=== PATIENT | female | born 1955 | race Caucasian/White ===

== ENCOUNTER 2018-08-05 08:38 | Inpatient (IN) | payer OTHER, BC, SELFPAY ==
[2018-07-21 08:29] VITALS: BMI 27.3
[2018-08-05] VITALS (13 sets, daily range): BP systolic 97–149; BP diastolic 62–93; PULSE 66–92; RESP 14–18; TEMP 35.5–36.3; O2SAT 94–99; BMI 27.3
--- NOTE | 2018-08-05 | DI.RAD.S_ITS ---
PROCEDURE: XR HIP W PEL IF DONE RT 2V INDICATIONS: POST OP TOTAL RIGHT HIP TECHNIQUE: AP pelvis and lateral view of the right hip acquired. COMPARISON: None. FINDINGS: Bones: Patient is status post right hip arthroplasty, with hardware components in expected positions. The hip joint appears congruent. The visualized bony structures appear intact. Moderate to severe degenerative narrowing is present within the left hip. Soft tissues: Overlying postoperative changes are noted. No suspicious soft tissue densities. IMPRESSION: Status post right hip arthroplasty as above. Dictated by: Kat Nieves M.D. on 08/05/2018 at 14:58 Approved by: Kat Nieves M.D. on 08/05/2018 at 14:59
--- NOTE | 2018-08-05 06:30 | DI.RAD.S_ITS ---
PROCEDURE: XR PELVIS 1-2V INDICATIONS: Right hip arthroplasty. TECHNIQUE: Intra-operative view of the pelvis and hip acquired. COMPARISON: [facility], CR, XR PELVIS WITH BILATERAL LATERAL HIPS, 02/17/2018, 8:53. [facility], CR, XR HIP W PEL IF DONE RT 2V, 08/05/2018, 14:19. FINDINGS: Bones: Intraoperative devices prior to placement of right hip arthroplasty prostheses are in expected positions. No fractures or suspicious bony lesions. Soft tissues: Overlying surgical retractors are present, along with other intraoperative changes. IMPRESSION: Intraoperative device in expected alignment. Dictated by: Lourdes Vazquez M.D. on 08/05/2018 at 17:27 Approved by: Lourdes Vazquez M.D. on 08/05/2018 at 17:28
[2018-08-05] MEDS: LACTATED RINGERS 1,000 ML 42 ML IV ×2 (09:42→13:56)
[2018-08-05] MEDS: VANCOMYCIN 1,000 MG/200 ML FROZ.PIGGY 200 MG IV (09:44)
[2018-08-05] MEDS: DEXAMETHASONE 10 MG/ML VIAL 8 MG IV (09:44)
[2018-08-05] MEDS: CELECOXIB 200 MG CAPSULE PO (09:46)
[2018-08-05] MEDS: ACETAMINOPHEN 325 MG TABLET 975 MG PO ×2 (09:46→20:44)
[2018-08-05] MEDS: PREGABALIN 75 MG CAPSULE PO (09:46)
[2018-08-05] MEDS: CEFAZOLIN 2 GM/100 ML FROZ.PIGGY IV ×2 (11:28→20:46)
[2018-08-05] MEDS: MIDAZOLAM 2 MG/2 ML VIAL IV ×2 (11:28)
--- NOTE | 2018-08-05 11:36 | PM.PREOP ---
Pre-operative Note Interval Note Pre-op Check: Yes History & Physical Reviewed by Physician and Yes Exam Performed Changes: No
--- NOTE | 2018-08-05 11:36 | PM.OP.1 ---
Operative Date/Time/Diagnoses Date of procedure: 08/05/18 Time of procedure: 13:36 Pre-op diagnosis: right hip osteoarthritis Post-op diagnosis: same Procedure & Clinicians Procedure: right total hip arthroplasty Same procedure as scheduled: Yes Indications: The patient has had progressively worsening right hip pain with radiographic changes consistent with arthritis. Non-operative management has failed and the patient has requested total hip replacement. The risks, benefits and alternatives to surgery were discussed with the patient prior to proceeding. Risks discussed included, but were not limited to, failure to relieve pain, leg length discrepancy, dislocation, stiffness, infection, nerve damage, deep venous thrombosis, pulmonary embolism, stroke, coma, heart attack, permanent paralysis and , as well as the potential need for eventual revision of the prosthetic. Surgeon: Yarelis Bess Methods Analyst Data Processing: Inna Mandel Anesthesia Type: General and Spinal Operative Notes Findings: severe right hip osteoarthritis, good stability, good mobility Closure Type: primary Specimen(s): none sent Implants & Drains: [employer]hew R3 50, 32 x 50, +0, anthology size 7 standard offset Applied: drain(s) Estimated Blood Loss (mL): 200 Blood products transfused: none Procedure in detail: The patient was seen in the pre-operative area, where the patient identified the right hip as the operative site and this was marked with my initials. The patient received pre-operative antibiotics and was taken to the operating room and placed on the operative table in the left lateral decubitus position after satisfactory anesthesia. A kidney puller out was performed. The right leg was prepared from the ankle to the iliac crest with ChloroPrep in the usual fashion and draped through sterile drapes. The hip was approached through an approximately 20 cm incision centered over the greater trochanter and curving gently posteriorly as it went proximally. This was carried sharply to the fascia balbina, which was divided and retracted with a self retaining retractor. The trochanteric bursa was excised with care being taken to avoid the sciatic nerve, which was identified and protected throughout the case. The short external rotators were incised and the capsulomuscular flap was raised and tagged for later repair. The hip was dislocated, and a femoral neck osteotomy performed approximately 15 mm above the lesser trochanter. Retractors were placed around the femur. The canal was opened with a box cutting osteotome, followed by a T handled reamer and a lateralizing reamer. The chili pepper broach was then used, followed by sequential broaching until there was good stability of the broach in the femur. Retractors were placed to expose the acetabulum. The labrum and central soft tissues were removed. Reaming was performed initially going up in 2 mm increments, then 1 mm increments until good bite was obtained with an odd sized reamer. The cup 1 mm larger than the last reamer was then inserted using the appropriate anteversion guides. A trial neutral liner was placed. The broach was placed in the canal. A trial head and neck were then placed and the hip relocated and checked for leg length and stability. An intraoperative film confirmed the component position and no evidence of fracture. The patient was stable in the position of sleep, of squatting, and could be put through a range of motion with 45 degrees internal rotation without dislocation. At 90 degrees flexion, internal rotation to 70 was possible before dislocation. This was felt to be satisfactory and the appropriate components were opened, and the trials were removed. The acetabular liner was impacted into position. The final stem was then impacted into the prepared femoral canal. A brief Betadine soak was performed while trialing with head options. The hip was meticulously irrigated with normal saline. Finally the femoral head was impacted onto the stem. The acetabulum was cleared of all material and the hip relocated one final time. The capsulomuscular flap was then repaired to the greater trochanter though an awl hole using the tag sutures. The short external rotators were repaired with a black braided nylon. A deep drain was placed and brought out anteriorly. The fascia balbina was closed with black braided nylon. The subcutaneous layer was closed with barbed sutures and SteriStrips. An Aquacel Ag dressing was applied and the patient was taken to recovery having tolerated the procedure well. Complications: none Condition: stable Disposition: Acute Care Plan for aftercare: The patient will be maintained on a standard total hip replacement protocol with weight bearing as tolerated and posterior hip precautions. The patient will receive Aspirin and sequential compression devices for DVT prophylaxis. The patient will be discharged home when safe for the home environment.
[2018-08-05] MEDS: BUPIVACAINE 0.25% W/ EPI VIAL 60 ML INJ (12:24)
[2018-08-05] MEDS: BUPIVACAINE LIPOSOME 266 MG/20 ML VIAL INJ (12:25)
[2018-08-05] MEDS: POVIDONE-IODINE 15 ML, SODIUM CHLORIDE 0.9% 250 ML TOP (12:28)
[2018-08-05] MEDS: SODIUM CHLORIDE IRRIG SOLUTION 250 ML, EPINEPHrine 1 MG IRR (12:31)
[2018-08-05] MEDS: SODIUM CHLORIDE IRRIG SOLUTION 1,000 ML BOTTLE 1000 ML IRR (12:32)
--- NOTE | 2018-08-05 12:53 | SUR.OPER ---
Lateral on padded OR bed. Gel axillary roll. Arms secured on padded armboard with pillow supporting top arm. Padded hip positioner braces x4 - anterior and posterior chest and pelvis. Additional gel pad used anterior pelvis. Gel pad under bottom leg from knee to foot and secured with tape over sheet.
--- NOTE | 2018-08-05 15:01 | SUR.PHASEI ---
Margi had reported upon admit to PACU the pt. had eye lid swelling to both eyelids, most likely due to the tape that was placed over eye for surgery. This author applied a surg. glove with ice on a wash cloth and the wash cloth was placed over the eye lids.
--- NOTE | 2018-08-05 15:03 | SUR.PHASEI ---
At this time, noted improvement to eye lids. Removed wash cloth and ice for now.
[2018-08-05] MEDS: LACTATED RINGERS 1,000 ML 125 ML IV (15:54)
--- NOTE | 2018-08-05 16:24 | PT.IPTN ---
Current Diagnoses Unilateral primary osteoarthritis, right hip (08/05/18) Surgery Performed Operation Date: 08/05/18 10:45 Actual Procedures p Total Hip Arthroplasty(Right) - Yarelis Bess MD Physical Therapy Treatment Note M3 PT-IP Subjective Start: 08/05/18 16:21 Freq: NEEDED Status: Active Protocol: Document 08/05/18 16:22 EA (Rec: 08/05/18 16:24 EA [id number]) Subjective Physical Therapy Visit Type Type Patient Unavailable Notes at 1640, Nurse in-charged informed advertising copywriter that patient is just got up into the floor and not ready for PT eval yet. To perform PT evaluation tomorrow a.m
[2018-08-05] MEDS: DOCUSATE 100 MG CAPSULE PO (20:45)
[2018-08-05] MEDS: ASPIRIN EC 81 MG TABLET PO (20:45)
[2018-08-05] MEDS: ONDANSETRON 4 MG/2 ML INJ IV (20:51)
[2018-08-06] MEDS: ONDANSETRON 4 MG/2 ML INJ IV ×2 (00:23→08:49)
[2018-08-06] MEDS: LACTATED RINGERS 1,000 ML 125 ML IV (00:26)
[2018-08-06] MEDS: OXYCODONE IR 5 MG TABLET PO ×2 (01:05→23:49)
[2018-08-06] MEDS: CEFAZOLIN 2 GM/100 ML FROZ.PIGGY IV (03:05)
--- NOTE | 2018-08-06 03:57 | PC.NURSE ---
NOC pt denied pain at start of shift, but quickly increased to a 5/10 when she got up to use BSC. pt voided 200 (plus a mild amount of dribbling on floor). Patient then became nauseous and vomited 300ml, 4mg Zofran IV administered. Patient reported no nausea after 30 minutes and I administered 5mg Oxycodone for pain.
[2018-08-06 04:32] VITALS: BP 127/90; PULSE 61; RESP 16; TEMP 35.9; O2SAT 98
[2018-08-06] MEDS: LEVOTHYROXINE 100 MCG TABLET PO (05:27)
[2018-08-06 08:00] VITALS: BP 131/96; PULSE 65; RESP 16; TEMP 35.9; O2SAT 100
[2018-08-06] MEDS: LOSARTAN 50 MG TABLET PO (09:08)
[2018-08-06] MEDS: MULTIVITAMIN 1 TABLET 1 TAB PO (09:09)
[2018-08-06] MEDS: DOCUSATE 100 MG CAPSULE PO ×2 (09:09→21:13)
[2018-08-06] MEDS: ASPIRIN EC 81 MG TABLET PO ×2 (09:09→21:13)
[2018-08-06] MEDS: ACETAMINOPHEN 325 MG TABLET 975 MG PO ×3 (09:09→21:13)
--- NOTE | 2018-08-06 10:03 | PM.PNPO.1 ---
Subjective Date Patient Seen: 08/06/18 Time Patient Seen: 07:17 Interval history: Patient was having moderate to severe pain earlier this morning. Current pain is mild. Denies fever chills. She has been nauseous and had an episode of vomiting earlier this morning. Has been up using the bedside commode but has not been seen by physical therapy. Exam Vital Signs (past 8 hours): - 08/06/18 04:32 Temperature 96.6 F L Pulse Rate 61 Respiratory Rate 16 Blood Pressure 127/90 Pulse Oximetry 98 Oxygen Delivery Method Room Air Oxygen Flow Rate 2 Narrative Exam Narrative: 62-year-old female resting comfortably in bed in no apparent distress. Right hip dressing is clean, dry and intact. Motor functions intact distal right lower extremity. Sensation is grossly intact to light touch right lower extremity. Objective Labs Result Diagrams: 08/06/18 06:35 Assessment & Plan Post-op Postoperative Procedures Operation Date: 08/05/18 10:45 Actual Procedures Side Surgeon p Total Hip Arthroplasty Right Yarelis Bess MD Patient progressing as expected status post right total hip arthroplasty. Mobilize with physical therapy. Will continue work on pain control and her nausea. Likely discharge home tomorrow. Quality VTE Deep Vein Thrombosis/Pulmonary Embolism Present on Admission: No
--- NOTE | 2018-08-06 11:25 | PT.IIE ---
Current Diagnoses Unilateral primary osteoarthritis, right hip (08/05/18) Surgery Performed Operation Date: 08/05/18 10:45 Actual Procedures p Total Hip Arthroplasty(Right) - Yarelis Bess MD Surgical History (Last Updated 07/21/18 @ 09:15 by Daniela Cowart, RN) History of bilateral tubal ligation (Acute) Medical History (Last Updated 07/21/18 @ 09:16 by Daniela Cowart, RN) Allergy to metal (Acute) Cataracts, bilateral (Acute) Constipation (Acute) History of frequent headaches (Acute) History of migraine headaches (Acute) Latex allergy (Acute) Postmenopausal (Acute) Primary localized osteoarthrosis of pelvic region (Acute) Physical Therapy Inpatient Evaluation/Re-Eval M1 PT/OT-IP Prior Functional Status Start: 08/05/18 16:21 Freq: NEEDED Status: Active Protocol: Document 08/06/18 11:25 AB (Rec: 08/06/18 13:02 [id number]) Medical Review Prior Functional Status Medical History Reviewed Yes Communication able to make needs known Mobility and Gait Pt stated that she is independent with all mobilities and ambulation without AD Social History Household Members spouse Living Arrangements House Number of Floors (Floors) One Floor Number of Stairs To Enter/Railing? 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 spouse works as well but will take a few weeks off to assist pt. pt plans to take a shower at her mom's house which is ~ 7 houses away: walk in shower with built in shower chair and grab bars M2 PT-IP Current Condition Start: 08/05/18 16:21 Freq: NEEDED Status: Active Protocol: Document 08/06/18 11:25 AB (Rec: 08/06/18 13:02 AB [id number]) Physical Therapy Current Condition Current Condition Evaluation Date 08/06/18 Treatment Diagnosis s/p R BEATRIZ posterior approach Onset Date 08/05/18 Precautions Posterior Hip Precautions No Hip Flexion > 90 degrees No Hip Internal Rotation No Hip Adduction Weight Bearing Status Weight Bearing Status Weight Bear as Tolerated M3 PT-IP Subjective Start: 08/05/18 16:21 Freq: NEEDED Status: Active Protocol: Document 08/06/18 11:25 AB (Rec: 08/06/18 13:02 AB [id number]) Subjective Physical Therapy Visit Type Type Initial Evaluation Visit Start Time 11:25 Visit Stop Time 12:05 Total Visit Minutes 40 Number of [facility] OPERATOR Visits 0 Physical Therapy Visit Comments Patient Comments pt agreeable to do PT Therapy Pain Assessment Pain When Pain Assessed At Rest Pain Present Pain Present Pain Reported Location rt hip Intensity 6 Scale Used Numeric (1 - 10) Pain Management Techniques Apply Cold Re-positioning Timing of Activity with Medications M4 PT-IP Mobility and Gait Start: 08/05/18 16:21 Freq: NEEDED Status: Active Protocol: Document 08/06/18 11:25 AB (Rec: 08/06/18 13:02 [id number]) PT-Bed Mobility Assessment Supine to Sit Supine to Sit Standby Assistance Scooting Scooting to Edge of Bed Standby Assistance PT-Transfer Assessment Sit to and From Stand Sit to and from Stand Contact Guard Assistance Equipment Transfer Assistive Device Gait Belt Front Wheeled Walker Orthotic/Prosthetic Devices or Brace: No Transfers Transfer Destination Chair Transfer Technique Stand Step Pivot Transfer Ability Level of Assist Contact Guard Assistance 1 Person Assistance Use of Upper Extremities Gait Assessment Gait Gait Assistance Required: Contact Guard Assist Distance (Feet) 40 Able to Maintain Weight Bearing Status Yes During Gait Assistive Devices Assistive Device Gait Belt Front Wheeled Walker Orthotic/Prosthetic Devices or Brace: No Gait Deviations General Gait Pattern Antalgic Decreased Stride Length Decreased Feet Clearance Step-to Gait Factors Limiting Gait Function Factors Limiting Gait Function Decreased Activity Tolerance Decreased Strength Limited Range of Motion Pain Poor Balance PT-Balance Assessment Sitting Balance and Reactions Static Sitting Balance Ability Good Dynamic Sitting Balance Ability Good Standing Balance and Reactions Static Standing Balance Ability Fair Dynamic Standing Balance Ability Fair Device Used FWW M5 PT-IP Objective Assessments Start: 08/05/18 16:21 Freq: NEEDED Status: Active Protocol: Document 08/06/18 11:25 AB (Rec: 08/06/18 13:02 AB [id number]) Orientation Orientation/Cognition Level of Alertness Alert Orientation Name Age Birthday Month Date Year Day of Week Place Situation Safety Awareness Understands Safety Issues Gross Range of Motion Lower Extremity ROM Assessment Right Impaired Strength Lower Extremity Strength Assessment Right Impaired Knee 3+/5 Muscle Tone Muscle Tone WNL Yes M6 PT-IP Treatment Start: 08/05/18 16:21 Freq: NEEDED Status: Active Protocol: Document 08/06/18 11:25 AB (Rec: 08/06/18 13:02 AB [id number]) Physical Therapy Treatment Education Education Provided Precautions Weight Bearing Status Post-Op Packet Safety M7 PT-IP Assessment and Plan Start: 08/05/18 16:21 Freq: NEEDED Status: Active Protocol: Document 08/06/18 11:25 AB (Rec: 08/06/18 13:02 AB [id number]) PT Summary Assessment and Plan Potential Rehabilitation Potential Good Status of Condition at Evaluation Stable Summary Impairments Pain ROM Strength Balance Coordination Sensation Tone Cognition Bed Mobility Transfers Gait Activity Tolerance Assessment Summary pt requiring CGA with mobility and will likely progres during hospital stay. pt plans to go home with spouse to assist her. pt also stated that she is already set up for outpt PT. Goals Bed Mobility Goal Independent Transfer Goal Independent Front Wheeled Walker Gait Goal Standby Assistance Front Wheel Walker Gait Distance 150 Other Goals up/down 2 steps without rails using FWW or least restrictive device CGA Days to Meet Goals 3 Frequency of Treatment Frequency Of Treatment Twice a Day Treatment Plan Physical Therapy Treatment Plan Bed Mobility Training Transfer Training Gait Training Therapeutic Exercise Balance Retraining Post Op Education Discharge Planning Hot or Cold Pack Neuromuscular Re-ed Coordination Retraining Manual Therapy Recommendations To Nursing Amount of Assist Needed 1 Person Assist Discharge Recommendations PT Discharge Recommendations Home with Assistance Outpatient PT
[2018-08-06 12:00] VITALS: BP 129/83; PULSE 71; RESP 16; TEMP 36.1; O2SAT 100
[2018-08-06 12:47] LABS: Hematocrit 35.9 % (36-46); Hemoglobin 12.2 g/dL (12.0-16.0)
[2018-08-06] MEDS: ONDANSETRON 4 MG ODT PO (12:47)
[2018-08-06] MEDS: IBUPROFEN 600 MG TABLET PO ×2 (12:48→18:48)
--- NOTE | 2018-08-06 16:05 | CM.DANOTE ---
DCP Chart Review Patient is a 62 year old female who was admitted on 08/05/18 for Right Total Hip. Pt has REG PPO and BX FED for insurance and her PCP is Dr. Smith. EMR was reviewed. Per Ortho, pt tolerated procedure well and likely d/c home tomorrow if stable. Per PT, currently recommending home with family assist and outpt. Per PT, pt has supportive local family in [place] and has a good plan for assist and outpt therapy. SW unable to complete bedside assessment due to triage needs. Plan: SW to follow closely tomorrow for likely d/c home with family assist and outpt therapy. SW to complete bedside assessment if possible to confirm. DONNA Gastelum
[2018-08-06 16:12] VITALS: BP 98/63; PULSE 74; RESP 20; TEMP 36.4; O2SAT 99
--- NOTE | 2018-08-06 17:13 | PT.IPTN ---
Current Diagnoses Unilateral primary osteoarthritis, right hip (08/05/18) Surgery Performed Operation Date: 08/05/18 10:45 Actual Procedures p Total Hip Arthroplasty(Right) - Yarelis Bess MD Physical Therapy Treatment Note M2 PT-IP Current Condition Start: 08/05/18 16:21 Freq: NEEDED Status: Active Protocol: Document 08/06/18 11:25 AB (Rec: 08/06/18 13:02 AB [id number]) Physical Therapy Current Condition Current Condition Evaluation Date 08/06/18 Treatment Diagnosis s/p R BEATRIZ posterior approach Onset Date 08/05/18 Precautions Posterior Hip Precautions No Hip Flexion > 90 degrees No Hip Internal Rotation No Hip Adduction Weight Bearing Status Weight Bearing Status Weight Bear as Tolerated M3 PT-IP Subjective Start: 08/05/18 16:21 Freq: NEEDED Status: Active Protocol: Document 08/06/18 16:54 BELEN (Rec: 08/06/18 17:13 LJ [id number]) Subjective Physical Therapy Visit Type Type Progress Note Visit Start Time 15:35 Visit Stop Time 16:00 Total Visit Minutes 25 Physical Therapy Visit Comments Patient Comments Pt agreed to pracise stairs Therapy Pain Assessment Pain When Pain Assessed At Rest Pain Present Pain Present Denied Pain M4 PT-IP Mobility and Gait Start: 08/05/18 16:21 Freq: NEEDED Status: Active Protocol: Document 08/06/18 16:54 BELEN (Rec: 08/06/18 17:13 LJ [id number]) PT-Bed Mobility Assessment Supine to Sit Supine to Sit Standby Assistance Scooting Scooting to Edge of Bed Standby Assistance PT-Transfer Assessment Sit to and From Stand Sit to and from Stand Standby Assistance Equipment Transfer Assistive Device Gait Belt Straight Cane Orthotic/Prosthetic Devices or Brace: No Transfers Transfer Destination Bed Transfer Technique Forward/Backward Scoot Transfer Ability Level of Assist Standby Assistance 1 Person Assistance Use of Upper Extremities Gait Assessment Gait Gait Assistance Required: Contact Guard Assist Distance (Feet) 365 Able to Maintain Weight Bearing Status Yes During Gait Assistive Devices Assistive Device Gait Belt Straight Cane Orthotic/Prosthetic Devices or Brace: No Gait Deviations General Gait Pattern Antalgic Decreased Feet Clearance Factors Limiting Gait Function Factors Limiting Gait Function Decreased Activity Tolerance Decreased Strength Limited Range of Motion Pain Poor Balance Comments Gait Comments Pt ambulated with CGA with straight cane from home WC following 365' after performing stairs x 4. Pt taking normal length steps and a bit fast. Cues to slow down . PT-Balance Assessment Sitting Balance and Reactions Static Sitting Balance Ability Good Dynamic Sitting Balance Ability Good Standing Balance and Reactions Static Standing Balance Ability Fair Dynamic Standing Balance Ability Fair Device Used SPC M5 PT-IP Objective Assessments Start: 08/05/18 16:21 Freq: NEEDED Status: Active Protocol: Document 08/06/18 11:25 AB (Rec: 08/06/18 13:02 AB [id number]) Orientation Orientation/Cognition Level of Alertness Alert Orientation Name Age Birthday Month Date Year Day of Week Place Situation Safety Awareness Understands Safety Issues Gross Range of Motion Lower Extremity ROM Assessment Right Impaired Strength Lower Extremity Strength Assessment Right Impaired Knee 3+/5 Muscle Tone Muscle Tone WNL Yes M6 PT-IP Treatment Start: 08/05/18 16:21 Freq: NEEDED Status: Active Protocol: Document 08/06/18 16:54 LJ (Rec: 08/06/18 17:13 LJ [id number]) Physical Therapy Treatment Education Education Provided Precautions Weight Bearing Status Post-Op Packet Safety M7 PT-IP Assessment and Plan Start: 08/05/18 16:21 Freq: NEEDED Status: Active Protocol: Document 08/06/18 16:54 LJ (Rec: 08/06/18 17:13 LJ [id number]) PT Summary Assessment and Plan Potential Rehabilitation Potential Good Status of Condition at Evaluation Stable Summary Impairments Pain ROM Balance Gait Activity Tolerance Assessment Summary SBA for bed mobility and transfers. Pt practised stairs x 4 using SPC with assisting 2 times. Completed stair training with no LOB or confusion. Ambulated with 365' using near normal step length and pace. Slight foot clearance deficit. Overall mobility is very good and understands his role in gait assistance and stairs. Goals Bed Mobility Goal Independent Transfer Goal Independent Front Wheeled Walker Gait Goal Standby Assistance Front Wheel Walker Gait Distance 150 Other Goals up/down 2 steps without rails using FWW or least restrictive device CGA Days to Meet Goals 3 Frequency of Treatment Frequency Of Treatment Twice a Day Treatment Plan Physical Therapy Treatment Plan Bed Mobility Training Transfer Training Gait Training Therapeutic Exercise Balance Retraining Post Op Education Discharge Planning Hot or Cold Pack Neuromuscular Re-ed Coordination Retraining Manual Therapy Recommendations To Nursing Amount of Assist Needed Standby Assistance Discharge Recommendations PT Discharge Recommendations Home with Assistance Outpatient PT
[2018-08-06 19:57] VITALS: BP 112/52; PULSE 80; RESP 18; TEMP 36.1; O2SAT 98
[2018-08-06 20:50] VITALS: O2SAT 99
--- NOTE | 2018-08-06 21:23 | PC.NURSE ---
Urinary Retention/Bailee Shift Patient having urinary retention this shift. Patient dribbling urine, before and after voiding. At 1840 this shift patient voided 500mls, Post void residual scan showed >488mls in bladder. Patient asked to wait for I/O cath and see if she could void more. At 1945 patient voided 450mls and had Post void-residual of 478mls. Patient agreed to I/O cath at this time. I/O cath evacuated 800mls from patient's bladder. Patient then re-evaluated with bladder scanner after I/O cath with results of 0 mls in patient's bladder. Discussed with patient possible need to put in Faith catheter if this happens again. Patient agreed with this assessment. This RN discussed with patient need to get to bathroom more frequently to try to keep bladder as empty as possible. Upon discussion with patient, patient revealed that since her Cortisone injection 3 weeks ago she has been having trouble feeling when she has to void until it's becoming urgent. Patient states that since the injection she has been dribbling and having to wear liners in her underwear to protect herself. Patient states that dribbling and wearing pads was not her normal a month ago. Patient up ambulating very well, and pain helped with tylenol and motrin. No acute distress, will continue to monitor.
--- NOTE | 2018-08-06 23:36 | PC.NURSE ---
URINARY RETENTION/RAJAN PLACEMENT Patient voided 500mls at 2315 this shift. Post void residula scan revealed 350mls remaining in patient bladder. Upon discussion with patient rajan catheter placement agreed upon. Rajan placed using sterile technique at 2330. Clear urine evacuated immediately upon rajan placement. over 400mls removed and still draining. Patient tolerated procedure well.
[2018-08-07 00:04] VITALS: BP 93/57; PULSE 76; RESP 18; TEMP 36.6; O2SAT 97
[2018-08-07 04:15] VITALS: BP 96/67; PULSE 74; RESP 14; TEMP 36.3; O2SAT 95
[2018-08-07] MEDS: LEVOTHYROXINE 100 MCG TABLET PO (06:28)
[2018-08-07] MEDS: LOSARTAN 50 MG TABLET PO (08:26)
[2018-08-07] MEDS: DOCUSATE 100 MG CAPSULE PO ×2 (08:27→20:34)
[2018-08-07] MEDS: MULTIVITAMIN 1 TABLET 1 TAB PO (08:27)
[2018-08-07] MEDS: ACETAMINOPHEN 325 MG TABLET 975 MG PO ×3 (08:27→20:34)
[2018-08-07] MEDS: ASPIRIN EC 81 MG TABLET PO ×2 (08:27→20:35)
--- NOTE | 2018-08-07 10:42 | PM.PNPO.1 ---
Subjective Date Patient Seen: 08/07/18 Time Patient Seen: 10:43 Interval history: POD #2 status post right total hip arthroplasty posterior approach with Dr. Bess. Patient had difficulty urinating yesterday and Faith catheter was placed late last night. Patient's pain is well controlled. She notes a long history of difficulty ambulating due to her back issues. She notes she was falling before surgery due to her calves giving out. She is ambulating well in the hospital with physical therapy. Exam Vital Signs (past 8 hours): - 08/07/18 04:15 Temperature 97.4 F L Pulse Rate 74 Respiratory Rate 14 Blood Pressure 96/67 Pulse Oximetry 95 Oxygen Delivery Method Room Air Oxygen Flow Rate 2 Narrative Exam Narrative: Patient sitting in bedside chair in no acute distress. She is alert and oriented x3. Calves are soft, compressible, nontender bilaterally. Sensation intact light touch throughout bilateral lower extremities. Pulses are symmetrical. Right hip dressing is CDI. Faith in place. Objective Labs Result Diagrams: 08/06/18 06:35 Labs: Laboratory Results - last 24 hr 08/06/18 06:35 Hgb 12.2 Hct 35.9 L Assessment & Plan Post-op (1) S/P total hip arthroplasty: Current Visit: Yes Status: Acute (2) Thyroid disease: Current Visit: Yes Status: Acute (3) Scoliosis: Current Visit: Yes Status: Acute (4) Hypertension: Current Visit: Yes Status: Acute Postoperative Procedures Operation Date: 08/05/18 10:45 Actual Procedures Side Surgeon p Total Hip Arthroplasty Right Yarelis Bess MD POD #2 status post right total hip arthroplasty posterior approach with Dr. Bess. Keep Faith in place today, she had urinary retention all day yesterday and in and out caths, and would benefit from 1 more day. DC Faith early tomorrow morning. Continue mobilizing with her walker and with physical therapy. Continue current pain control. Plan will be to discharge home tomorrow. Quality VTE Deep Vein Thrombosis/Pulmonary Embolism Present on Admission: No
--- NOTE | 2018-08-07 11:15 | PT.IPTN ---
Current Diagnoses Disorder of thyroid, unspecified (08/05/18) Essential (primary) hypertension (08/05/18) Unilateral primary osteoarthritis, right hip (08/05/18) Scoliosis, unspecified (08/05/18) Presence of unspecified artificial hip joint (08/05/18) Surgery Performed Operation Date: 08/05/18 10:45 Actual Procedures p Total Hip Arthroplasty(Right) - Yarelis Bess MD Physical Therapy Treatment Note M2 PT-IP Current Condition Start: 08/05/18 16:21 Freq: NEEDED Status: Active Protocol: Document 08/06/18 11:25 AB (Rec: 08/06/18 13:02 AB [id number]) Physical Therapy Current Condition Current Condition Evaluation Date 08/06/18 Treatment Diagnosis s/p R BEATRIZ posterior approach Onset Date 08/05/18 Precautions Posterior Hip Precautions No Hip Flexion > 90 degrees No Hip Internal Rotation No Hip Adduction Weight Bearing Status Weight Bearing Status Weight Bear as Tolerated M3 PT-IP Subjective Start: 08/05/18 16:21 Freq: NEEDED Status: Active Protocol: Document 08/07/18 11:15 AB (Rec: 08/07/18 12:50 AB [id number]) Subjective Physical Therapy Visit Type Type Treatment Note Visit Start Time 11:15 Visit Stop Time 11:45 Total Visit Minutes 30 Number of MODEL 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 Visits 0 Physical Therapy Visit Comments Patient Comments pt agreeable to do PT Therapy Pain Assessment Pain When Pain Assessed At Rest Pain Present Pain Present Pain Reported Location rt hip Intensity 6 Scale Used Numeric (1 - 10) Pain Management Techniques Apply Cold Re-positioning Timing of Activity with Medications M4 PT-IP Mobility and Gait Start: 08/05/18 16:21 Freq: NEEDED Status: Active Protocol: Document 08/07/18 11:15 AB (Rec: 08/07/18 12:50 AB [id number]) PT-Transfer Assessment Sit to and From Stand Sit to and from Stand Standby Assistance 1 Person Assistance Equipment Transfer Assistive Device Gait Belt Front Wheeled Walker Gait Assessment Gait Gait Assistance Required: Standby Assistance Distance (Feet) 250 Able to Maintain Weight Bearing Status Yes During Gait Assistive Devices Assistive Device Gait Belt Front Wheeled Walker Orthotic/Prosthetic Devices or Brace: No Gait Deviations General Gait Pattern Decreased Stride Length Factors Limiting Gait Function Factors Limiting Gait Function Decreased Strength Limited Range of Motion Pain Poor Balance Stair Climbing Assessment Evaluation Level of Assist On Stairs Minimal Assistance 1 Person Assistance Devices Stair Climbing Assistive Devices Straight Cane Technique/Endurance Stair Climbing Direction Ascend and Descend Stair Climbing Technique Step to Step Number of Steps Climbed 3 Query Text: Stair Climbing Set # Repetitions (reps) 2 Comments Stair Climbing Comments pt completed up/down steps using SPC and PUNCH OPERATOR. caregiver training conduced with spouse and spouse was frank to safely assist pt with steps. M5 PT-IP Objective Assessments Start: 08/05/18 16:21 Freq: NEEDED Status: Active Protocol: Document 08/06/18 11:25 AB (Rec: 08/06/18 13:02 AB [id number]) Orientation Orientation/Cognition Level of Alertness Alert Orientation Name Age Birthday Month Date Year Day of Week Place Situation Safety Awareness Understands Safety Issues Gross Range of Motion Lower Extremity ROM Assessment Right Impaired Strength Lower Extremity Strength Assessment Right Impaired Knee 3+/5 Muscle Tone Muscle Tone WNL Yes M6 PT-IP Treatment Start: 08/05/18 16:21 Freq: NEEDED Status: Active Protocol: Document 08/07/18 11:15 AB (Rec: 08/07/18 12:50 AB [id number]) Physical Therapy Treatment Education Education Provided Precautions Safety M7 PT-IP Assessment and Plan Start: 08/05/18 16:21 Freq: NEEDED Status: Active Protocol: Document 08/07/18 11:15 AB (Rec: 08/07/18 12:50 AB [id number]) PT Summary Assessment and Plan Potential Rehabilitation Potential Good Summary Impairments Pain ROM Strength Balance Bed Mobility Transfers Gait Activity Tolerance Progress Towards Goals Progressing Toward Goals Assessment Summary pt doing well with mobility and caregiver training conducted and spouse was able to safely assist pt. pt may go home when medically stable. Goals Bed Mobility Goal Independent Transfer Goal Independent Front Wheeled Walker Gait Goal Standby Assistance Front Wheel Walker Gait Distance 150 Other Goals up/down 2 steps without rails using FWW or least restrictive device CGA Days to Meet Goals 3 Frequency of Treatment Frequency Of Treatment Twice a Day Treatment Plan Physical Therapy Treatment Plan Bed Mobility Training Transfer Training Gait Training Therapeutic Exercise Balance Retraining Post Op Education Discharge Planning Hot or Cold Pack Neuromuscular Re-ed Coordination Retraining Manual Therapy Other Recommendations and Next Treatment HEP Focus Recommendations To Nursing Amount of Assist Needed Standby Assistance Discharge Recommendations PT Discharge Recommendations Home with Assistance Outpatient PT
[2018-08-07 12:00] VITALS: BP 97/60; PULSE 91; RESP 18; TEMP 36.4; O2SAT 99
[2018-08-07] MEDS: POLYETHYLENE GLYCOL 3350 17 GM POWD.PACK PO (12:25)
[2018-08-07] MEDS: TRAMADOL 50 MG TABLET PO ×2 (12:44→20:38)
--- NOTE | 2018-08-07 15:30 | PT.IPTN ---
Current Diagnoses Disorder of thyroid, unspecified (08/05/18) Essential (primary) hypertension (08/05/18) Unilateral primary osteoarthritis, right hip (08/05/18) Scoliosis, unspecified (08/05/18) Presence of unspecified artificial hip joint (08/05/18) Surgery Performed Operation Date: 08/05/18 10:45 Actual Procedures p Total Hip Arthroplasty(Right) - Yarelis Bess MD Physical Therapy Treatment Note M2 PT-IP Current Condition Start: 08/05/18 16:21 Freq: NEEDED Status: Active Protocol: Document 08/06/18 11:25 AB (Rec: 08/06/18 13:02 AB [id number]) Physical Therapy Current Condition Current Condition Evaluation Date 08/06/18 Treatment Diagnosis s/p R BEATRIZ posterior approach Onset Date 08/05/18 Precautions Posterior Hip Precautions No Hip Flexion > 90 degrees No Hip Internal Rotation No Hip Adduction Weight Bearing Status Weight Bearing Status Weight Bear as Tolerated M3 PT-IP Subjective Start: 08/05/18 16:21 Freq: NEEDED Status: Active Protocol: Document 08/07/18 15:25 GGD (Rec: 08/07/18 16:32 GGD [email or web address]) Subjective Physical Therapy Visit Type Type Treatment Note Visit Start Time 15:00 Visit Stop Time 15:25 Total Visit Minutes 25 Number of POULTRY SCIENTIST Visits 1 Physical Therapy Visit Comments Patient Comments Pt would like to go over exercises. Therapy Pain Assessment Pain When Pain Assessed At Rest Pain Present Pain Present Pain Reported M4 PT-IP Mobility and Gait Start: 08/05/18 16:21 Freq: NEEDED Status: Active Protocol: Document 08/07/18 15:25 GGD (Rec: 08/07/18 16:32 GGD [email or web address]) PT-Bed Mobility Assessment Supine to Sit Supine to Sit Standby Assistance Sit to Supine Sit to Supine Standby Assistance Scooting Scooting to Edge of Bed Standby Assistance PT-Transfer Assessment Sit to and From Stand Sit to and from Stand Standby Assistance 1 Person Assistance Equipment Transfer Assistive Device Gait Belt Front Wheeled Walker Transfers Transfer Destination Bed Gait Assessment Gait Gait Assistance Required: Standby Assistance Distance (Feet) 500 Able to Maintain Weight Bearing Status Yes During Gait Assistive Devices Assistive Device Gait Belt Front Wheeled Walker Orthotic/Prosthetic Devices or Brace: No Gait Deviations General Gait Pattern Decreased Stride Length Factors Limiting Gait Function Factors Limiting Gait Function Decreased Strength Limited Range of Motion Pain Poor Balance M5 PT-IP Objective Assessments Start: 08/05/18 16:21 Freq: NEEDED Status: Active Protocol: Document 08/06/18 11:25 AB (Rec: 08/06/18 13:02 AB [id number]) Orientation Orientation/Cognition Level of Alertness Alert Orientation Name Age Birthday Month Date Year Day of Week Place Situation Safety Awareness Understands Safety Issues Gross Range of Motion Lower Extremity ROM Assessment Right Impaired Strength Lower Extremity Strength Assessment Right Impaired Knee 3+/5 Muscle Tone Muscle Tone WNL Yes M6 PT-IP Treatment Start: 08/05/18 16:21 Freq: NEEDED Status: Active Protocol: Document 08/07/18 15:25 GGD (Rec: 08/07/18 16:32 GGD [email or web address]) Physical Therapy Treatment Exercises Exercises Ankle Pumps Gluteal Sets Quad Sets Heel Slides Supine Hip Abduction Education Education Provided Precautions M7 PT-IP Assessment and Plan Start: 08/05/18 16:21 Freq: NEEDED Status: Active Protocol: Document 08/07/18 15:25 GGD (Rec: 08/07/18 16:32 GGD [email or web address]) PT Summary Assessment and Plan Summary Assessment Summary Pt need cues for hip precautions with gait and bed mobility. She safe with gait and no LOB or unsteadiness. She should be safe to D/C home when medically stable. Frequency of Treatment Frequency Of Treatment Twice a Day Treatment Plan Physical Therapy Treatment Plan Bed Mobility Training Transfer Training Gait Training Therapeutic Exercise Balance Retraining Post Op Education Discharge Planning Hot or Cold Pack Neuromuscular Re-ed Coordination Retraining Manual Therapy Recommendations To Nursing Amount of Assist Needed Standby Assistance Discharge Recommendations PT Discharge Recommendations Home with Assistance Outpatient PT
[2018-08-07 16:15] VITALS: BP 99/57; PULSE 108; RESP 16; TEMP 36.7; O2SAT 95
[2018-08-07 19:27] VITALS: BP 106/77; PULSE 108; RESP 18; TEMP 36.8; O2SAT 98
[2018-08-08 00:34] VITALS: BP 146/67; PULSE 88; RESP 14; TEMP 36.6; O2SAT 98
[2018-08-08] MEDS: TRAMADOL 50 MG TABLET PO ×2 (01:37→06:17)
[2018-08-08] MEDS: LEVOTHYROXINE 100 MCG TABLET PO (06:17)
--- NOTE | 2018-08-08 07:41 | PM.DS.1 ---
History of Present Illness Date Patient Seen: 08/08/18 Chief complaint: [id number] Narrative: Patient was seen bedside s/p R. BEATRIZ on 08/05/18 POD #3. Doing well, pain is well controlled, she is ready to go home. Denies SOB, cough, CP, calf pain. Discharge Providers Date of admission: 08/05/18 08:38 Consults: 08/05/18 15:47 Consult to Discharge Planning Routine Comment: Consult to Physical Therapy Evaluate & Treat Comment: posterior Physician Instructions: post op BEATRIZ protocol Consult to Respiratory Therapy Evaluate & Treat Comment: Physician Instructions: Evaluate and treat Discharge provider: Inna Mandel PA-C Summary Discharge Diagnosis: right hip osteoarthritis Hospital Course: Patient was admitted to the hospital on 08/05/2018 status post right total hip arthroplasty with Dr. Bess. Patient tolerated the procedure with no major complications. Patient was transferred to the acute care floor. Patient was seen by Physical therapy who recommended patient be discharged home with outpatient PT. Patient did have some urinary retention after surgery however it has resolved by 08/08/18. Patient was stable and ready for discharge on 08/08/2018. Status at Discharge Cognitive/behavioral status at discharge: Alert and oriented x3 Functional status at discharge: uses cane/walker Overall status at discharge: patient is progressing back to baseline Time Spent with Patient Less than 30 minutes Exam Vital Signs (past 8 hours): - 08/08/18 00:34 Temperature 97.9 F Pulse Rate 88 Respiratory Rate 14 Blood Pressure 146/67 H Pulse Oximetry 98 Oxygen Delivery Method Room Air Oxygen Flow Rate 2 Narrative Exam Narrative: WDWN NAD A&Ox3. Dressing on right hip is CDI, RLE NVI. Calf is soft and compressible. Objective Labs Result Diagrams: 08/06/18 06:35 Discharge Plan Discharge Plan Patient Disposition: Home Discharge Med Rec/Prescriptions Prescriptions: New acetaminophen 325 mg Tablet 975 mg PO TID Qty: 0 RF: 0 aspirin 81 mg Tablet,Delayed Release (Dr/Ec) 81 mg PO BID Qty: 0 RF: 0 docusate sodium 100 mg Capsule 100 mg PO BID Qty: 0 RF: 0 oxycodone 5 mg Tablet 5 mg PO Q3HR PRN (Reason: Pain, Moderate (4-6)) Qty: 0 RF: 0 hydroxyzine pamoate [Vistaril] 25 mg capsule 25 mg PO Q6-8H PRN (Reason: muscle spasm) Qty: 60 RF: 0 Continue multivitamin Tablet 1 - 3 tab PO DAILY RF: 0 losartan 50 mg Tablet 50 mg PO DAILY RF: 0 phentermine 37.5 mg Tablet 37.5 mg PO DAILY RF: 0 levothyroxine 100 mcg Tablet 100 mcg PO DAILY RF: 0 ibuprofen [Advil] 200 mg Tablet 800 mg PO Q4-6H PRN (Reason: Bid) RF: 0 Provider Discharge Instructions Diet: Diet as Tolerated Activity: WBAT, follow posterior hip precautions, use walker until cleared by PT Cold/Heat Therapy: Apply ice for 20 minutes at a time at least hourly while awake. Skin/Wound/Dressing Care Report to your healthcare provider any signs of infection, such as:: chills, fever, night sweats, increased pain and unusual drainage Dressing: Keep dressing clean, dry, and intact. May shower with dressing in place but no soaking. Visit Report/Discharge Packet Instructions: DI for Hip Replacement Stand Alone Forms: Surgery Discharge Visit Report Forms: Stroke Signs & Symptoms Discharge Data Attending Provider: Yarelis Bess Admit Date/Time: 08/05/18 08:38 Quality VTE Deep Vein Thrombosis/Pulmonary Embolism Present on Admission: No
[2018-08-08 08:00] VITALS: BP 145/111; PULSE 73; RESP 16; TEMP 36.7; O2SAT 99
--- NOTE | 2018-08-08 09:13 | PC.NURSE ---
Notified Nurse of High Blood Pressure result
[2018-08-08] MEDS: ASPIRIN EC 81 MG TABLET PO (09:29)
[2018-08-08] MEDS: LOSARTAN 50 MG TABLET PO (09:29)
[2018-08-08] MEDS: DOCUSATE 100 MG CAPSULE PO (09:29)
[2018-08-08] MEDS: IBUPROFEN 600 MG TABLET PO (09:29)
[2018-08-08] MEDS: ACETAMINOPHEN 325 MG TABLET 975 MG PO (09:29)
[2018-08-08] MEDS: MULTIVITAMIN 1 TABLET 1 TAB PO (09:29)
[2018-08-08] MEDS: OXYCODONE IR 5 MG TABLET PO (10:43)
--- NOTE | 2018-08-08 12:01 | PC.NURSE ---
08/08 1100; Pt alert and oriented x4 VSS on RA, had some tachycardia with rate at 99-105 upon assessment, otherwise grossly intact, dressing c/d/i, and CMS intact. Showered pt with no incidence, clothed for discharge. Spouse at bedside. Pt educated and presented with discharge paperwork, questions answered. One prescription accompanied discharge information. Escorted via wheelchair down to entrance where safely entered private vehicle with spouse.
--- NOTE | 2018-08-08 15:33 | CM.DPC ---
DCP Cont: Pt DC home today; no barriers to safe DC home per PA, pt and PT. Pt eager to return home w/spouse. JW
== END 2018-08-08 11:10 | disposition home or self-care (01) | DRG 470 ==
PROVIDERS: Admitting Provider Orthopaedic Surgery; Visit Provider Orthopaedic Surgery
PROC: 0SR90JZ Replacement of Right Hip Joint with Synthetic Substitute, Open Approach (ICD-10-PCS; CPT 27130; principal; 2018-08-05 10:45)
DX: M16.11 Unilateral primary osteoarthritis, right hip (principal); M51.16 Intervertebral disc disorders with radiculopathy, lumbar region; I10 Essential (primary) hypertension; E03.9 Hypothyroidism, unspecified; R11.2 Nausea with vomiting, unspecified; M41.9 Scoliosis, unspecified; R33.9 Retention of urine, unspecified
CPT/HCPCS: 36415; 72170; 73502; 85014; 85018; 94760; 97110; 97116; 97161; 97530; C1776; C9290; J0171; J0690; J1100; J2250; J2274; J2405; J2704; J3010; J3370

== ENCOUNTER 2019-01-06 06:04 | Inpatient (IN) | payer OTHER, BC, SELFPAY ==
[2018-08-05 16:47] VITALS: BMI 27.3
[2018-12-22 13:53] VITALS: BMI 29.2
[2019-01-06] VITALS (19 sets, daily range): BP systolic 88–128; BP diastolic 49–87; PULSE 63–99; RESP 7–18; TEMP 36.1–37; O2SAT 90–99; BMI 29.2
--- NOTE | 2019-01-06 | DI.RAD.S_ITS ---
PROCEDURE: XR PELVIS 1-2V INDICATIONS: INTER-OP TECHNIQUE: 1 view of the lower pelvis acquired. COMPARISON: [facility], , XR PELVIS 1-2V, 08/05/2018, 12:49. FINDINGS: Bones: Patient is status post left hip arthroplasty, with hardware components in expected positions. The hip joint appears congruent. The visualized bony structures appear intact. Soft tissues: Overlying postoperative changes are noted. No suspicious soft tissue densities. IMPRESSION: Post left total hip arthroplasty changes with anatomic left hip alignment. Dictated by: Chema Tavares M.D. on 01/06/2019 at 10:14 Approved by: Chema Tavares M.D. on 01/06/2019 at 10:15
--- NOTE | 2019-01-06 | DI.RAD.S_ITS ---
PROCEDURE: XR HIP W PEL IF DONE LT 2V INDICATIONS: LEFT BEATRIZ TECHNIQUE: AP pelvis and lateral view of the left hip acquired. COMPARISON: [facility], [place], XR HIP W PEL IF DONE RT 2V, 08/05/2018, 14:19. FINDINGS: Bones: Patient is status post left hip arthroplasty, with hardware components in expected positions. The hip joint appears congruent. The visualized bony structures appear intact. Incidentally noted right hip arthroplasty Soft tissues: Overlying postoperative changes are noted. No suspicious soft tissue densities. IMPRESSION: Expected postoperative appearance of left hip arthroplasty. Dictated by: Mert Duff M.D. on 01/06/2019 at 16:39 Approved by: Mert Duff M.D. on 01/06/2019 at 16:39
[2019-01-06] MEDS: LACTATED RINGERS 1,000 ML 42 ML IV ×2 (07:00→09:45)
[2019-01-06] MEDS: VANCOMYCIN 1,000 MG/200 ML FROZ.PIGGY 200 MG IV (07:02)
[2019-01-06] MEDS: ACETAMINOPHEN 325 MG TABLET 975 MG PO ×3 (07:09→21:55)
[2019-01-06] MEDS: CELECOXIB 200 MG CAPSULE PO (07:10)
[2019-01-06] MEDS: PREGABALIN 75 MG CAPSULE PO (07:10)
--- NOTE | 2019-01-06 07:41 | PM.PREOP ---
Pre-operative Note Interval Note History & Physical reviewed/Exam performed by Physician: Yes Changes to H&P: No
--- NOTE | 2019-01-06 07:42 | PM.OP.1 ---
Operative Date/Time/Diagnoses Date of procedure: 01/06/19 Time of procedure: 07:58 Pre-op diagnosis: left hip OA Post-op diagnosis: same Procedure & Clinicians Procedure: Left total hip arthroplasty Same procedure as scheduled: Yes Indications: The patient has had progressively worsening left hip pain with radiographic changes consistent with arthritis. Non-operative management has failed and the patient has requested total hip replacement. The risks, benefits and alternatives to surgery were discussed with the patient prior to proceeding. Risks discussed included, but were not limited to, failure to relieve pain, leg length discrepancy, dislocation, stiffness, infection, nerve damage, deep venous thrombosis, pulmonary embolism, stroke, coma, heart attack, permanent paralysis and , as well as the potential need for eventual revision of the prosthetic. Surgeon: Yarelis Alexander Senior Program Manager: Pao Boyle Anesthesia Type: General and Spinal Operative Notes Findings: Severe left hip arthritis, good stability Closure Type: primary Specimen(s): none sent Prosthetic devices, grafts, tissues, transplants, or devices: alexander and nephew R3 50 cup, 50 x 32, anthology 7 standard, -3 Applied: drain(s) Estimated Blood Loss (mL): 250 Blood products transfused: none Procedure in detail: The patient was seen in the pre-operative area, where the patient identified the left hip as the operative site and this was marked with my initials. The patient received pre-operative antibiotics and was taken to the operating room and placed on the operative table in the left lateral decubitus position after satisfactory anesthesia. A fullerette out? was performed. The right leg was prepared from the ankle to the iliac crest with ChloroPrep in the usual fashion and draped through sterile drapes. The hip was approached through an approximately 20 cm incision centered over the greater trochanter and curving gently posteriorly as it went proximally. This was carried sharply to the fascia balbina, which was divided and retracted with a self retaining retractor. The trochanteric bursa was excised with care being taken to avoid the sciatic nerve, which was identified and protected throughout the case. The short external rotators were incised and the capsulomuscular flap was raised and tagged for later repair. The hip was dislocated, and a femoral neck osteotomy performed approximately 15 mm above the lesser trochanter. Retractors were placed around the femur. The canal was opened with a box cutting osteotome, followed by a T handled reamer and a lateralizing reamer. The chili pepper broach was then used, followed by sequential broaching until there was good stability of the broach in the femur. Retractors were placed to expose the acetabulum. The labrum and central soft tissues were removed. Reaming was performed initially going up in 2 mm increments, then 1 mm increments until good bite was obtained with an odd sized reamer. The cup 1 mm larger than the last reamer was then inserted using the appropriate anteversion guides. A trial neutral liner was placed. The broach was placed in the canal. A trial head and neck were then placed and the hip relocated and checked for leg length and stability. An intraoperative film confirmed the component position and no evidence of fracture. The patient was stable in the position of sleep, of squatting, and could be put through a range of motion with 45 degrees internal rotation without dislocation. At 90 degrees flexion, internal rotation to 70 ? was possible before dislocation. This was felt to be satisfactory and the appropriate components were opened, and the trials were removed. The acetabular liner was impacted into position. The final stem was then impacted into the prepared femoral canal. A brief Betadine soak was performed while trialing with head options. The hip was meticulously irrigated with normal saline. Finally the femoral head was impacted onto the stem. The acetabulum was cleared of all material and the hip relocated one final time. The capsulomuscular flap was then repaired to the greater trochanter though an awl hole using the tag sutures. The short external rotators were repaired with a nonabsorbable suture. A deep drain was placed and brought out anteriorly. The fascia balbina was closed with nonabsorbable sutures. The subcutaneous layer was closed with barbed sutures and surgical glue. An Aquacel Ag dressing was applied and the patient was taken to recovery having tolerated the procedure well. Complications: none Condition: stable Disposition: Acute Care Plan for aftercare: The patient will be maintained on a standard total hip replacement protocol with weight bearing as tolerated and posterior hip precautions. The patient will receive Aspirin and sequential compression devices for DVT prophylaxis. The patient will be discharged home when safe for the home environment.
[2019-01-06] MEDS: CEFAZOLIN 2 GM/100 ML FROZ.PIGGY IV ×2 (08:00→16:45)
--- NOTE | 2019-01-06 08:29 | SUR.OPER ---
Right Lateral on padded OR bed. Gel axillary roll. Arms secured on padded armboard with pillow supporting top arm. Padded hip positioner braces x4 - anterior and posterior chest and pelvis. Additional gel pad used anterior pelvis. Gel pad under bottom leg from knee to foot and secured with tape over sheet.
--- NOTE | 2019-01-06 08:38 | SUR.OPER ---
Bluish/purple bruise noted on patient's left proximal lateral calf during pre-operative positioning . Approximately 2x2. Dr. Bess aware.
[2019-01-06] MEDS: BUPIVACAINE 0.25% W/ EPI VIAL 50 ML INJ (08:42)
[2019-01-06] MEDS: BUPIVACAINE LIPOSOME 266 MG/20 ML VIAL INJ (08:42)
[2019-01-06] MEDS: TRANEXAMIC ACID 1,000 MG VIAL 2 MG INJ ×2 (08:43→10:08)
[2019-01-06] MEDS: POVIDONE-IODINE 15 ML, SODIUM CHLORIDE 0.9% 250 ML TOP (08:44)
[2019-01-06] MEDS: SODIUM CHLORIDE IRRIG SOLUTION 250 ML, EPINEPHrine 1 MG IRR (08:55)
--- NOTE | 2019-01-06 11:13 | SUR.PHASEI ---
care transferred to Afua Melendez, report provided.
--- NOTE | 2019-01-06 11:14 | SUR.PHASEI ---
sleeping, O2 sat drop to 89% oxygen replaced at 2l/cannula.
--- NOTE | 2019-01-06 11:33 | SUR.PHASEI ---
care assumed report recieved.
[2019-01-06] MEDS: LACTATED RINGERS 1,000 ML 125 ML IV ×2 (12:31→21:55)
--- NOTE | 2019-01-06 12:46 | PC.NURSE ---
Addendum entered by Shellie Cole R.N. 01/06/19 15:29: [facility] - Dr. Bess in to see pt and discussed edema and redness eye area, ok admin 25mg IV benadryl however, Dr. Bess req that it not be admin now and to wait until phys therapy mobilizes pt call them to get her up, did call phys therapy to inform them that Dr. Bess was requesting post op mobilization this afternoon. Original Note: POST OP ARRIVAL - drowsy, easily awakens, has reddened and swollen eyelids and surrounding tissue, no drainage, per Roderick in PACU, this was noted post op, no medications were given, pt able to open eyes, no itching or pain eyes, no post op hip pain at this time, able wiggle toes, + sensation feet and le, placed 1L while drowsy 96% hr 64, bp 98/52, hemovac unclamped and compressed with serosang in tubing,aquacell cdi, scd on, oral care provided, no nausea, rebecca water and ice chips.
--- NOTE | 2019-01-06 13:00 | CM.DANOTE ---
DCP: Case received, EMR reviewed and met with patient. Introduced self and role. DCP template completed with information currently available. Patient is a 63 year old female who admitted yesterday morning to the care of the surgical team. PCP: Dr. Fernandez. Payer: confirmed: [facility]. Patient came to hospital for surgery. Had Left hip arthroplasty. Had surgery in Jul, had right hip done then. Patient alert, and daughter in room. She resides in [place] with her . She stated that she has a walker, brought in, for when she had her other hip done. Stated that she has a couple of steps to get into her home. Is independent at home. Stated that they are set up for outpatient physical therapy. She mentioned that they used [facility] before. P: DCP to follow closely. Could be discharged tomorrow, will see how she does with physical therapy team. Jessie Liang RN/Human Resources Office Assistant
--- NOTE | 2019-01-06 16:00 | PT.IIE ---
Current Diagnoses Unilateral primary osteoarthritis, left hip (01/06/19) Surgery Performed Operation Date: 01/06/19 07:45 Actual Procedures p Total Hip Arthroplasty(Left) - Yarelis Bess MD Surgical History (Last Updated 12/22/18 @ 13:54 by Farida Noe, RN) History of total right hip arthroplasty (Acute 08/05/18) History of bilateral tubal ligation (Acute) Medical History (Last Updated 07/21/18 @ 09:16 by Daniela Cowart RN) Allergy to metal (Acute) Cataracts, bilateral (Acute) Constipation (Acute) History of frequent headaches (Acute) History of migraine headaches (Acute) Latex allergy (Acute) Postmenopausal (Acute) Primary localized osteoarthrosis of pelvic region (Acute) Physical Therapy Inpatient Evaluation/Re-Eval M1 PT/OT-IP Prior Functional Status Start: 01/06/19 14:28 Freq: NEEDED Status: Active Protocol: Document 01/06/19 16:00 DLM (Rec: 01/06/19 16:28 DLM [email or web address]) Medical Review Prior Functional Status Medical History Reviewed Yes Diet/Fluid Consistency Regular Communication WFL, glasses Mobility and Gait Using cane for gait due to hip pain Activities of Daily Living and IADL's Independent Social History Household Members spouse Living Arrangements House Number of Floors (Floors) One Floor Number of Stairs To Enter/Railing? 2, rail Home Equipment Front Wheel Walker Straight Cane Window Unit Air Conditioning Mechanic Sock Aid M2 PT-IP Current Condition Start: 01/06/19 14:28 Freq: NEEDED Status: Active Protocol: Document 01/06/19 16:00 DLM (Rec: 01/06/19 16:28 DLM [email or web address]) Physical Therapy Current Condition Current Condition Evaluation Date 01/06/19 Treatment Diagnosis left BEATRIZ, posterior approach, impaired gait Onset Date 12/27/18 Precautions Posterior Hip Precautions No Hip Flexion > 90 degrees No Hip Internal Rotation No Hip Adduction Weight Bearing Status Weight Bearing Status Weight Bear as Tolerated M3 PT-IP Subjective Start: 01/06/19 14:28 Freq: NEEDED Status: Active Protocol: Document 01/06/19 16:00 DLM (Rec: 01/06/19 16:28 DLM [email or web address]) Subjective Physical Therapy Visit Type Type Initial Evaluation Visit Start Time 15:25 Visit Stop Time 16:00 Total Visit Minutes 35 Number of FEATURES REPORTER Visits 0 Physical Therapy Visit Comments Patient Comments She needs to use the toilet to urinate Patient Goals Be able to go home Therapy Pain Assessment Pain When Pain Assessed After Treatment Pain Present Pain Present Pain Reported Location rt hip Intensity 4 Scale Used Numeric (1 - 10) Description Aching Pain Management Techniques Apply Cold Re-positioning M4 PT-IP Mobility and Gait Start: 01/06/19 14:28 Freq: NEEDED Status: Active Protocol: Document 01/06/19 16:00 DLM (Rec: 01/06/19 16:28 DLM [email or web address]) PT-Bed Mobility Assessment Supine to Sit Supine to Sit Minimal Assistance Sit to Supine Sit to Supine Minimal Assistance Scooting Scooting to Edge of Bed Standby Assistance Scooting Up and Down in Bed Standby Assistance PT-Transfer Assessment Sit to and From Stand Sit to and from Stand Minimal Assistance Equipment Transfer Assistive Device Gait Belt Front Wheeled Walker Transfers Transfer Destination Chair Transfer Technique Stand Step Pivot Transfer Ability Level of Assist Contact Guard Assistance Use of Upper Extremities Gait Assessment Gait Gait Assistance Required: Contact Guard Assist Distance (Feet) 10 Able to Maintain Weight Bearing Status Yes During Gait Assistive Devices Assistive Device Gait Belt Front Wheeled Walker Gait Deviations General Gait Pattern Antalgic Factors Limiting Gait Function Factors Limiting Gait Function Decreased Activity Tolerance Decreased Strength Pain Comments Gait Comments she c/o nausea after gait that improved with seated rest in recliner but did not resolve, After sitting in recliner pt requested back to bed PT-Balance Assessment Sitting Balance and Reactions Static Sitting Balance Ability Good Dynamic Sitting Balance Ability Good Standing Balance and Reactions Static Standing Balance Ability Fair Dynamic Standing Balance Ability Fair Device Used FWW M5 PT-IP Objective Assessments Start: 01/06/19 14:28 Freq: NEEDED Status: Active Protocol: Document 01/06/19 16:00 DLM (Rec: 01/06/19 16:28 DLM [email or web address]) Orientation Orientation/Cognition Level of Alertness Alert Orientation Name Age Birthday Month Date Year Day of Week Place Situation Language Function Ability No Deficits Noted Safety Awareness Understands Safety Issues Memory Description No Deficits Noted Comments face is swollen Gross Range of Motion Upper Extremity ROM Assessment Within Functional Limits Lower Extremity ROM Assessment Left Impaired Impairments post-op precautions Strength Upper Extremity Strength Assessment Within Functional Limits Lower Extremity Strength Assessment Left Impaired Hip hip flexion 2+/5 Knee 2+/5 Ankle DF 4/5 Comments Strength Comments post-op pain affecting left LE strength Coordination Assessment Gross Coordination Gross Coordination WNL Sensation Assessment Sensation Gross Sensation WNL Muscle Tone Muscle Tone WNL Yes M6 PT-IP Treatment Start: 01/06/19 14:28 Freq: NEEDED Status: Active Protocol: Document 01/06/19 16:00 DLM (Rec: 01/06/19 16:28 DLM [email or web address]) Physical Therapy Treatment Exercises Exercises Ankle Pumps Education Education Provided Precautions Weight Bearing Status Post-Op Packet Safety Other Treatments Other Treatment Performed posted hip precautions in her room, educated her Spouse in her hip precautions M7 PT-IP Assessment and Plan Start: 01/06/19 14:28 Freq: NEEDED Status: Active Protocol: Document 01/06/19 16:00 DLM (Rec: 01/06/19 16:28 DLM [email or web address]) PT Summary Assessment and Plan Potential Rehabilitation Potential Excellent Status of Condition at Evaluation Evolving Summary Impairments Pain ROM Strength Balance Bed Mobility Transfers Gait Activity Tolerance Assessment Summary Faith is alert and willing to participate in Physical Therapy. She tolerated up to bedside commode and short distance of gait in her room with FWW. She sat up in recliner for short period of time but requested back to bed . Pt had nausea with activity this visit but no vomiting. She needs education for her hip precautions. Her Spouse is present this visit and very supportive. Anticipate she will be able to discharge home with her Spouse to assist her when medically stable. Goals Bed Mobility Goal Standby Assistance Transfer Goal Standby Assistance Front Wheeled Walker Gait Goal Standby Assistance Front Wheel Walker Gait Distance 150 feet Other Goals Up and down 2 steps with rail and cane with CG/min assist Days to Meet Goals 2 Frequency of Treatment Frequency Of Treatment Twice a Day Treatment Plan Physical Therapy Treatment Plan Bed Mobility Training Transfer Training Gait Training Therapeutic Exercise Post Op Education Discharge Planning Hot or Cold Pack Recommendations To Nursing Amount of Assist Needed 1 Person Assist Discharge Recommendations PT Discharge Recommendations Home with Assistance Outpatient PT Other Discharge Recommendations Spouse can assist her at home
[2019-01-06] MEDS: diphenhydrAMINE 50 MG/ML VIAL 25 MG IV (16:50)
[2019-01-06] MEDS: OXYCODONE IR 5 MG TABLET PO ×2 (18:10→21:54)
--- NOTE | 2019-01-06 19:37 | PC.NURSE ---
Addendum entered by Lucy Wills R.N. 01/06/19 22:42: When reassessed tonight patient told me there was 2 times a lot earlier when I had trouble swallowing but then I was able to. Said it was hours ago, said it hasn't happened since. Geetha-orbital edema is observably less to left eye, right eye still swollen >L eye, but also observably less than earlier tonight. Benedryl given, she c/o increased pain to left lateral thigh tonight, medicated with 1 tab Oxycodone. Snack given with pills. Denies other needs. VS remain stable, now on RA oxygen with sats maintaining 98%, continous pulse ox remains in place for safety tonight re: previous incident tonight. Original Note: Shift note: 1800: Faith resting in bed, VS stable, 1L O2 sat 94-98%. Facial edema present, mostly geetha-orbital, right eye much more swollen than left. Pt can open eye more than previous nurse reported, she also said it's getting better. I gave Benadryl per order by Dr Bess, med given after patient ambulated in room with physical therapy. After Benadryl given I started IV Cefazolin per orders. Within 10 minutes of starting this medication spouse called staff in room, patient able to speak saying she felt like she choked on potsticker that my daughter brought, respirations 18/regular, non-labored, 1L O2 sat 99% Face flushed. At that point I immediately stopped IV Cefazolin and disconnected IV tubing, in case her choking may have been caused by swelling of throat &/or reaction to medication. She had small amt of emesis, she said it came on suddenly. Staff asked her not to eat or drink anything at that point. I called Orthopedics, pig casting machine operator Brenda #[id number] told me she relayed the specific message that patient had geetha-orbital edema post-operatively but had choked & nurse worried that throat is swelling & may be related to antibiotic just started. Order given to stop the antibiotic, no further orders given. I changed IV tubing to new set, to ensure cefazolin not in IV tubing. (Pt received approx 30 ml of 100 ml bag of cefazolin.) Within 45 minutes of incident Faith reported that she felt like food not stuck anymore. She denies further nausea. No void since prior to surgery. Bladder scan = 650, catheter placed by Patrica RN & student nurse. Pt given one oxycodone for c/o pain to left knee and hip, she is now sleeping, respirations 16/minute, 1L O2 sat 94% Will continue to monitor closely.
[2019-01-06] MEDS: ASPIRIN EC 81 MG TABLET PO (21:54)
[2019-01-06] MEDS: diphenhydrAMINE 25 MG TABLET PO (21:54)
[2019-01-07] MEDS: IBUPROFEN 600 MG TABLET PO (00:05)
--- NOTE | 2019-01-07 00:27 | PC.NURSE ---
Addendum entered by Riana Logan R.N. 01/07/19 06:33: Pt requests rajan remain in until after she speaks with provider to discuss history of urine retention with prior surgeries. Original Note: Assumed care of pt at 2300 on 01/06/19. Pt resting in bed during bedside hand-off. DRSG c/d/i with H/V compressed and draining sang drainage. Rajan draining to gravity. Per Bailee shift RN bladder scanned with over 600 retained and rajan was placed per pt request. RA sats 97-98% with CPOX. IVF infusing per orders to PIV. Reports posterior neck pain r/t arthritis. Medicated per jan. SCD's on. CMS+, able to wiggle toes. Denies numbness. Reports periorbital edema has improved. Denies swallow deficits at this time. Swalled PO meds without difficulty. Bed alarm on. Call light within reach.
[2019-01-07] MEDS: OXYCODONE IR 5 MG TABLET PO ×6 (04:38→20:47)
[2019-01-07] MEDS: diphenhydrAMINE 25 MG TABLET PO ×3 (04:38→15:45)
[2019-01-07] MEDS: LACTATED RINGERS 1,000 ML 125 ML IV (04:38)
[2019-01-07 04:48] VITALS: BP 130/85; PULSE 70; RESP 16; TEMP 36.4; O2SAT 99
[2019-01-07] MEDS: LEVOTHYROXINE 100 MCG TABLET PO (04:54)
[2019-01-07 07:24] LABS: Hematocrit 35.4 % (36-46); Hemoglobin 11.8 g/dL (12.0-16.0)
[2019-01-07 07:45] VITALS: O2SAT 97
[2019-01-07 08:00] VITALS: BP 118/77; PULSE 68; RESP 16; TEMP 36.4; O2SAT 98
[2019-01-07] MEDS: ASPIRIN EC 81 MG TABLET PO ×2 (08:10→21:03)
[2019-01-07] MEDS: ACETAMINOPHEN 325 MG TABLET 975 MG PO ×3 (08:12→21:02)
[2019-01-07] MEDS: MULTIVITAMIN 1 TABLET 1 TAB PO (08:13)
[2019-01-07] MEDS: LOSARTAN 50 MG TABLET PO (08:15)
--- NOTE | 2019-01-07 08:31 | PM.PNPO.1 ---
Subjective Date Patient Seen: 01/07/19 Time Patient Seen: 08:31 Interval history: Hospital day 2, postop day 1 following left posterior total hip arthroplasty by Dr. Bess. Patient has been stable postoperatively. She was noted have some facial an eyelid swelling postoperatively of unknown etiology. She has been taking Benadryl which is improved the swelling significantly. Still his Faith catheter in place. She has been up in the room with PT. Hemovac in place. She is a sweet path patient. She did have a right total hip last year. Exam Vital Signs (past 8 hours): - 01/07/19 04:48 Temperature 97.6 F Pulse Rate 70 Respiratory Rate 16 Blood Pressure 130/85 Pulse Oximetry 99 Oxygen Delivery Method Nasal Cannula Oxygen Flow Rate 1 Narrative Exam Narrative: Alert, oriented no acute distress resting in bed. Legs. Aquacel dressing to left hip is dry without drainage or inflammation. Hemovac in place with decreased drainage. No calf pain or swelling. Pulses symmetrical. Objective Labs Result Diagrams: 01/07/19 06:50 Labs: Laboratory Results - last 24 hr 01/07/19 06:50 Hgb 11.8 L Hct 35.4 L Assessment & Plan Post-op Postoperative Procedures Operation Date: 01/06/19 07:45 Actual Procedures Side Surgeon p Total Hip Arthroplasty Left Yarelis Bess MD Plan: Patient will work with PT more today. Anticipate DC Hemovac and Faith catheter later today. Anticipate discharge home tomorrow if stable and cleared by PT. She is scheduled to go to physical therapy in billing him. Quality VTE Deep Vein Thrombosis/Pulmonary Embolism Present on Admission: No
--- NOTE | 2019-01-07 10:55 | PT.IPTN ---
Current Diagnoses Unilateral primary osteoarthritis, left hip (01/06/19) Surgery Performed Operation Date: 01/06/19 07:45 Actual Procedures p Total Hip Arthroplasty(Left) - Yarelis Bess MD Physical Therapy Treatment Note M2 PT-IP Current Condition Start: 01/06/19 14:28 Freq: NEEDED Status: Active Protocol: Document 01/06/19 16:00 DLM (Rec: 01/06/19 16:28 DLM [email or web address]) Physical Therapy Current Condition Current Condition Evaluation Date 01/06/19 Treatment Diagnosis left BEATRIZ, posterior approach, impaired gait Onset Date 12/27/18 Precautions Posterior Hip Precautions No Hip Flexion > 90 degrees No Hip Internal Rotation No Hip Adduction Weight Bearing Status Weight Bearing Status Weight Bear as Tolerated M3 PT-IP Subjective Start: 01/06/19 14:28 Freq: NEEDED Status: Active Protocol: Document 01/07/19 10:55 GGD (Rec: 01/07/19 12:30 GGD [id number]) Subjective Physical Therapy Visit Type Type Treatment Note Visit Start Time 10:30 Visit Stop Time 10:55 Total Visit Minutes 25 Number of GRADES 1 THRU 5 TEACHER Visits 1 Physical Therapy Visit Comments Patient Comments Pt states she would like to get out of bed. Therapy Pain Assessment Pain When Pain Assessed At Rest Pain Present Pain Present Pain Reported Location rt hip Intensity 4 Scale Used Numeric (1 - 10) M4 PT-IP Mobility and Gait Start: 01/06/19 14:28 Freq: NEEDED Status: Active Protocol: Document 01/07/19 10:55 GGD (Rec: 01/07/19 12:30 GGD [id number]) PT-Bed Mobility Assessment Supine to Sit Supine to Sit Contact Guard Assistance Sit to Supine Sit to Supine Contact Guard Assistance Scooting Scooting to Edge of Bed Standby Assistance Scooting Up and Down in Bed Standby Assistance PT-Transfer Assessment Sit to and From Stand Sit to and from Stand Contact Guard Assistance Equipment Transfer Assistive Device Gait Belt Front Wheeled Walker Transfers Transfer Destination Chair Transfer Ability Level of Assist Contact Guard Assistance Use of Upper Extremities Gait Assessment Gait Gait Assistance Required: Contact Guard Assist Distance (Feet) 220 Able to Maintain Weight Bearing Status Yes During Gait Assistive Devices Assistive Device Gait Belt Front Wheeled Walker Gait Deviations General Gait Pattern Antalgic Factors Limiting Gait Function Factors Limiting Gait Function Decreased Activity Tolerance Decreased Strength Pain Stair Climbing Assessment Evaluation Level of Assist On Stairs Minimal Assistance Devices Stair Climbing Assistive Devices Straight Cane Technique/Endurance Stair Climbing Direction Ascend and Descend Stair Climbing Technique Step Over Step Number of Steps Climbed 3 Query Text: Stair Climbing Set # Repetitions (reps) 1 Comments Stair Climbing Comments hand hold assist with Min A and SPC. M5 PT-IP Objective Assessments Start: 01/06/19 14:28 Freq: NEEDED Status: Active Protocol: Document 01/06/19 16:00 DLM (Rec: 01/06/19 16:28 DLM [email or web address]) Orientation Orientation/Cognition Level of Alertness Alert Orientation Name Age Birthday Month Date Year Day of Week Place Situation Language Function Ability No Deficits Noted Safety Awareness Understands Safety Issues Memory Description No Deficits Noted Comments face is swollen Gross Range of Motion Upper Extremity ROM Assessment Within Functional Limits Lower Extremity ROM Assessment Left Impaired Impairments post-op precautions Strength Upper Extremity Strength Assessment Within Functional Limits Lower Extremity Strength Assessment Left Impaired Hip hip flexion 2+/5 Knee 2+/5 Ankle DF 4/5 Comments Strength Comments post-op pain affecting left LE strength Coordination Assessment Gross Coordination Gross Coordination WNL Sensation Assessment Sensation Gross Sensation WNL Muscle Tone Muscle Tone WNL Yes M6 PT-IP Treatment Start: 01/06/19 14:28 Freq: NEEDED Status: Active Protocol: Document 01/07/19 10:55 GGD (Rec: 01/07/19 12:30 GGD [id number]) Physical Therapy Treatment Exercises Exercises Ankle Pumps Gluteal Sets Quad Sets Education Education Provided Precautions Other Treatments Other Treatment Performed Pt able to recall 2/3 hip precautions. M7 PT-IP Assessment and Plan Start: 01/06/19 14:28 Freq: NEEDED Status: Active Protocol: Document 01/07/19 10:55 GGD (Rec: 01/07/19 12:30 GGD [id number]) PT Summary Assessment and Plan Summary Assessment Summary Pt improving with mobility. She needed less assist with mobility. She was able to progress her gait distance. She was safe with stair mobility, but did need cues. Frequency of Treatment Frequency Of Treatment Twice a Day Treatment Plan Physical Therapy Treatment Plan Bed Mobility Training Transfer Training Gait Training Therapeutic Exercise Post Op Education Discharge Planning Hot or Cold Pack Recommendations To Nursing Amount of Assist Needed 1 Person Assist Discharge Recommendations PT Discharge Recommendations Home with Assistance Outpatient PT
--- NOTE | 2019-01-07 11:38 | PC.NURSE ---
pt up to chair with P.T. assist. Resting comfortably with in rm.
--- NOTE | 2019-01-07 14:15 | PT.IPTN ---
Current Diagnoses Unilateral primary osteoarthritis, left hip (01/06/19) Surgery Performed Operation Date: 01/06/19 07:45 Actual Procedures p Total Hip Arthroplasty(Left) - Yarelis Bess MD Physical Therapy Treatment Note M2 PT-IP Current Condition Start: 01/06/19 14:28 Freq: NEEDED Status: Active Protocol: Document 01/06/19 16:00 DLM (Rec: 01/06/19 16:28 DLM [email or web address]) Physical Therapy Current Condition Current Condition Evaluation Date 01/06/19 Treatment Diagnosis left BEATRIZ, posterior approach, impaired gait Onset Date 12/27/18 Precautions Posterior Hip Precautions No Hip Flexion > 90 degrees No Hip Internal Rotation No Hip Adduction Weight Bearing Status Weight Bearing Status Weight Bear as Tolerated M3 PT-IP Subjective Start: 01/06/19 14:28 Freq: NEEDED Status: Active Protocol: Document 01/07/19 14:10 GGD (Rec: 01/07/19 15:18 GGD [id number]) Subjective Physical Therapy Visit Type Type Treatment Note Visit Start Time 13:40 Visit Stop Time 14:10 Total Visit Minutes 30 Number of C SOFTWARE ENGINEER Visits 2 Physical Therapy Visit Comments Patient Comments Pt states she feeling stiff. Therapy Pain Assessment Pain When Pain Assessed At Rest Pain Present Pain Present Pain Reported Location rt hip Intensity 6 Scale Used Numeric (1 - 10) M4 PT-IP Mobility and Gait Start: 01/06/19 14:28 Freq: NEEDED Status: Active Protocol: Document 01/07/19 14:10 GGD (Rec: 01/07/19 15:18 GGD [id number]) PT-Bed Mobility Assessment Supine to Sit Supine to Sit Contact Guard Assistance Sit to Supine Sit to Supine Contact Guard Assistance Scooting Scooting to Edge of Bed Standby Assistance Scooting Up and Down in Bed Standby Assistance PT-Transfer Assessment Sit to and From Stand Sit to and from Stand Contact Guard Assistance Equipment Transfer Assistive Device Gait Belt Front Wheeled Walker Transfers Transfer Destination Bed Transfer Ability Level of Assist Contact Guard Assistance Use of Upper Extremities Gait Assessment Gait Gait Assistance Required: Contact Guard Assist Distance (Feet) 120 Able to Maintain Weight Bearing Status Yes During Gait Assistive Devices Assistive Device Gait Belt Front Wheeled Walker Gait Deviations General Gait Pattern Antalgic Factors Limiting Gait Function Factors Limiting Gait Function Decreased Activity Tolerance Decreased Strength Pain Stair Climbing Assessment Evaluation Level of Assist On Stairs Minimal Assistance Devices Stair Climbing Assistive Devices Straight Cane Technique/Endurance Stair Climbing Direction Ascend and Descend Stair Climbing Technique Step Over Step Number of Steps Climbed 3 Query Text: Stair Climbing Set # Repetitions (reps) 1 Comments Stair Climbing Comments hand hold assist with Min A and SPC. M5 PT-IP Objective Assessments Start: 01/06/19 14:28 Freq: NEEDED Status: Active Protocol: Document 01/06/19 16:00 DLM (Rec: 01/06/19 16:28 DLM [email or web address]) Orientation Orientation/Cognition Level of Alertness Alert Orientation Name Age Birthday Month Date Year Day of Week Place Situation Language Function Ability No Deficits Noted Safety Awareness Understands Safety Issues Memory Description No Deficits Noted Comments face is swollen Gross Range of Motion Upper Extremity ROM Assessment Within Functional Limits Lower Extremity ROM Assessment Left Impaired Impairments post-op precautions Strength Upper Extremity Strength Assessment Within Functional Limits Lower Extremity Strength Assessment Left Impaired Hip hip flexion 2+/5 Knee 2+/5 Ankle DF 4/5 Comments Strength Comments post-op pain affecting left LE strength Coordination Assessment Gross Coordination Gross Coordination WNL Sensation Assessment Sensation Gross Sensation WNL Muscle Tone Muscle Tone WNL Yes M6 PT-IP Treatment Start: 01/06/19 14:28 Freq: NEEDED Status: Active Protocol: Document 01/07/19 14:10 GGD (Rec: 01/07/19 15:18 GGD [id number]) Physical Therapy Treatment Exercises Exercises Ankle Pumps Gluteal Sets Quad Sets Education Education Provided Precautions M7 PT-IP Assessment and Plan Start: 01/06/19 14:28 Freq: NEEDED Status: Active Protocol: Document 01/07/19 14:10 GGD (Rec: 01/07/19 15:18 GGD [id number]) PT Summary Assessment and Plan Summary Assessment Summary Pt had increase in pain with mobility. She improved with stair mobility, needing less cues and assist. She did need mod cues for hip precautions, hip IR with turns and hip flexion with bed. Frequency of Treatment Frequency Of Treatment Twice a Day Treatment Plan Physical Therapy Treatment Plan Bed Mobility Training Transfer Training Gait Training Therapeutic Exercise Post Op Education Discharge Planning Hot or Cold Pack Recommendations To Nursing Amount of Assist Needed 1 Person Assist Discharge Recommendations PT Discharge Recommendations Home with Assistance Outpatient PT
--- NOTE | 2019-01-07 14:25 | PC.NURSE ---
pt c/o slight itching to head and swelling to bilateral eyes. Requesting benedryl. 25mg Benedryl given. Will monitor.
[2019-01-07 15:28] VITALS: BP 96/57; PULSE 82; RESP 18; TEMP 36.4; O2SAT 99
--- NOTE | 2019-01-07 16:17 | PC.NURSE ---
Addendum entered by Brock Ruiz 01/07/19 16:30: This student nurse noticed no measurable output in the Hemovac drain prior to discontinuing. Original Note: At 16:00 student nurse removed patients Faith catheter and Hemovac drain from patient's left hip. Patient at this time is experiencing what appears to be an allergic reaction according to NO[facility] Bar. Faith and Hemovac drain could be a potential causes. The student nurse noted 100ml of urine output in the catheter bag which was clear and yellow without odor. Patient tolerated the procedures well and left hip drain stab wound had 2x2 dressing applied with no notable bruising or active bleeding at the site. Patient requested an ice-pack to help with the swelling and heat she was feeling on her face. This student nurse obtained an ice-pack and assisted patient with placement as requested. Safety: bed low and locked, call light within reach, and patient instructed to please call if assistance is needed.
[2019-01-07] MEDS: POLYETHYLENE GLYCOL 3350 17 GM POWD.PACK PO (17:58)
[2019-01-07 19:28] VITALS: BP 104/61; PULSE 93; RESP 20; TEMP 36.4; O2SAT 95
[2019-01-07] MEDS: diphenhydrAMINE 25 MG TABLET 50 MG PO (21:01)
[2019-01-08 01:00] VITALS: BP 114/65; PULSE 84; RESP 16; TEMP 36.7; O2SAT 95
[2019-01-08] MEDS: diphenhydrAMINE 25 MG TABLET PO ×2 (01:22→08:02)
[2019-01-08] MEDS: OXYCODONE IR 5 MG TABLET PO ×3 (01:22→10:57)
--- NOTE | 2019-01-08 02:10 | PC.NURSE ---
Assumed care of pt at 2300 on 01/08/19. Pt sleeping during bedside hand-off. Awakens to voice for assessment. Pt reports PO analgesics have been effective. Medicating per jan. Drsg to L. hip c/d/i. gauze to prior h/v site c/d/i. ppp. cms+. denies numbness. able to wiggle toes. Able to reposition in bed independently. Pillow between legs. Pt verbalized understanding of posterior hip precautions. Still reports itching and small amt of periorbital edema to R. eye. Medicating with Benadryl. IV s.l. Bed alarm on. Calling appropriately for needs.
[2019-01-08] MEDS: LEVOTHYROXINE 100 MCG TABLET PO (06:13)
[2019-01-08 08:00] VITALS: BP 105/67; PULSE 106; RESP 18; TEMP 36.6; O2SAT 97
--- NOTE | 2019-01-08 08:09 | PM.DS.1 ---
History of Present Illness Date Patient Seen: 01/08/19 Time Patient Seen: 08:09 Chief complaint: [id number] Hip Arthroplasty Narrative: Hospital day 3, postop day 2 following left posterior total hip arthroplasty by Dr. Bess. Patient remained stable. Still having some facial swelling and itching but has been gradually improving with Benadryl. Pain controlled with oxycodone. Patient planning on doing physical therapy in [place]. She has this with path patient and has postop medications at home. Discharge Providers Date of admission: 01/06/19 06:04 Discharge Date: 01/08/19 Consults: 01/06/19 06:00 Consult to Anesthesiology Routine Comment: Consulting Provider: Anesthesiologist Reason for consultation: Regional block for post operative pain control 01/06/19 12:16 Consult to Anesthesiology Routine Comment: Consulting Provider: Anesthesiologist Reason for consultation: Regional block for post operative pain control Consult to Discharge Planning Routine Comment: Consult to Physical Therapy Evaluate & Treat Comment: posterior Physician Instructions: post op BEATRIZ protocol Consult to Respiratory Therapy Evaluate & Treat Comment: Physician Instructions: Evaluate and treat Discharge provider: Frank Pizarro PA-C Summary Discharge Diagnosis: Status post left posterior total hip arthroplasty. Hospital Course: Patient brought to hospital on 01/06/2019 for above-noted surgery. She remained stable postoperatively. She did have some postoperative facial swelling and itching possibly related to anesthetic medications. Gradually improved with Benadryl. Patient progressed well with physical therapy. Ready for discharge home on postop day 2. Status at Discharge Cognitive/behavioral status at discharge: Alert oriented no acute distress resting in bed. Functional status at discharge: uses cane/walker Overall status at discharge: patient is progressing back to baseline Time Spent with Patient Less than 30 minutes Exam Vital Signs (past 8 hours): - 01/08/19 01:00 Temperature 98.0 F Pulse Rate 84 Respiratory Rate 16 Blood Pressure 114/65 Pulse Oximetry 95 Fraction of Inspired Oxygen 21 Oxygen Delivery Method Room Air Oxygen Flow Rate 0 Narrative Exam Narrative: Face. Mild puffiness of her right lower lid but improved from yesterday. Legs. Aquacel dressing to left hip is dry without drainage or inflammation. No calf pain or swelling. Pulses symmetrical. Objective Labs Result Diagrams: 01/07/19 06:50 Discharge Plan Discharge Plan Patient Disposition: Home Discharge comment: Discharged home today after cleared by PT. Patients with path patient has her postop pain medications at home. She will be doing physical therapy in [place]. Discharge Med Rec/Prescriptions Prescriptions: New acetaminophen 325 mg Tablet 975 mg PO TID Qty: 30 RF: 0 aspirin 81 mg Tablet,Delayed Release (Dr/Ec) 81 mg PO BID Qty: 60 RF: 0 Continued docusate sodium 100 mg capsule 100 mg PO DAILY PRN (Reason: Constipation) RF: 0 multivitamin Tablet 1 - 3 tab PO DAILY RF: 0 losartan 50 mg Tablet 50 mg PO DAILY RF: 0 levothyroxine 100 mcg Tablet 100 mcg PO DAILY RF: 0 acetaminophen 325 mg Tablet 975 mg PO TID Qty: 0 RF: 0 Provider Discharge Instructions Diet: Diet as Tolerated Activity: Ambulate as tolerated. Posterior total hip arthroplasty precautions for 6 weeks postop. Use walker as needed. Cold/Heat Therapy: Cold pack to left hip is needed. Skin/Wound/Dressing Care Report to your healthcare provider any signs of infection, such as:: chills, fever, night sweats, increased pain, unusual drainage and unusual redness Dressing: Keep Aquacel dressing in place until postop visit. Visit Report/Discharge Packet Instructions: DI for Hip Replacement Discharge Data Attending Provider: Yarelis Bess Admit Date/Time: 01/06/19 06:04 Quality VTE Deep Vein Thrombosis/Pulmonary Embolism Present on Admission: No
--- NOTE | 2019-01-08 08:11 | PC.NURSE ---
am shift. Assumed care of pt. Awake a/o x 4. Denies pain at this time. Requesting Benadryl for periorbital edema, no c/o itching.
--- NOTE | 2019-01-08 08:13 | P.DS_ITS ---
History of Present Illness Date Patient Seen: 01/08/19 Time Patient Seen: 08:09 Chief complaint: [id number] Hip Arthroplasty Narrative: Hospital day 3, postop day 2 following left posterior total hip arthroplasty by Dr. Bess. Patient remained stable. Still having some facial swelling and itching but has been gradually improving with Benadryl. Pain controlled with oxycodone. Patient planning on doing physical therapy in [place]. She has this with path patient and has postop medications at home. Discharge Providers Date of admission: 01/06/19 06:04 Discharge Date: 01/08/19 Consults: 01/06/19 06:00 Consult to Anesthesiology Routine Comment: Consulting Provider: Anesthesiologist Reason for consultation: Regional block for post operative pain control 01/06/19 12:16 Consult to Anesthesiology Routine Comment: Consulting Provider: Anesthesiologist Reason for consultation: Regional block for post operative pain control Consult to Discharge Planning Routine Comment: Consult to Physical Therapy Evaluate & Treat Comment: posterior Physician Instructions: post op BEATRIZ protocol Consult to Respiratory Therapy Evaluate & Treat Comment: Physician Instructions: Evaluate and treat Discharge provider: Frank Pizarro PA-C Summary Discharge Diagnosis: Status post left posterior total hip arthroplasty. Hospital Course: Patient brought to hospital on 01/06/2019 for above-noted surgery. She remained stable postoperatively. She did have some postoperative facial swelling and itching possibly related to anesthetic medications. Gr adually improved with Benadryl. Patient progressed well with physical therapy. Ready for discharge home on postop day 2. Status at Discharge Cognitive/behavioral status at discharge: Alert oriented no acute distress resting in bed. Functional status at discharge: uses cane/walker Overall status at discharge: patient is progressing back to baseline Time Spent with Patient Less than 30 minutes Exam Vital Signs (past 8 hours): - 01/08/19 01:00 Temperature 98.0 F Pulse Rate 84 Respiratory Rate 16 Blood Pressure 114/65 Pulse Oximetry 95 Fraction of Inspired Oxygen 21 Oxygen Delivery Method Room Air Oxygen Flow Rate 0 Narrative Exam Narrative: Face. Mild puffiness of her right lower lid but improved from yesterday. Legs. Aquacel dressing to left hip is dry without drainage or inflammation. No calf pain or swelling. Pulses symmetrical. Objective Labs Result Diagrams: 01/07/19 06:50 Discharge Plan Discharge Plan Patient Disposition: Home Discharge comment: Discharged home today after cleared by PT. Patients with path patient has her postop pain medications at home. She will be doing phy sical therapy in [place]. Discharge Med Rec/Prescriptions Prescriptions: New acetaminophen 325 mg Tablet 975 mg PO TID Qty: 30 RF: 0 aspirin 81 mg Tablet,Delayed Release (Dr/Ec) 81 mg PO BID Qty: 60 RF: 0 Continued docusate sodium 100 mg capsule 100 mg PO DAILY PRN (Reason: Constipation) RF: 0 multivitamin Tablet 1 - 3 tab PO DAILY RF: 0 losartan 50 mg Tablet 50 mg PO DAILY RF: 0 levothyroxine 100 mcg Tablet 100 mcg PO DAILY RF: 0 acetaminophen 325 mg Tablet 975 mg PO TID Qty: 0 RF: 0 Provider Discharge Instructions Diet: Diet as Tolerated Activity: Ambulate as tolerated. Posterior total hip arthroplasty precautions for 6 weeks postop. Use walker as needed. Cold/Heat Therapy: Cold pack to left hip is needed. Skin/Wound/Dressing Care Report to your healthcare provider any signs of infection, such as:: chills, fever, night sweats, increased pain, unusual drainage and unusual redness Dressing: Keep Aquacel dressing in place until postop visit. Visit Report/Discharge Packet Instructions: DI for Hip Replacement Discharge Data Attending Provider: Yarelis Bess Admit Date/Time: 01/06/19 06:04 Quality VTE Deep Vein Thrombosis/Pulmonary Embolism Present on Admission: No
[2019-01-08] MEDS: ACETAMINOPHEN 325 MG TABLET 975 MG PO (10:55)
--- NOTE | 2019-01-08 10:55 | PT.IPTN ---
Current Diagnoses Unilateral primary osteoarthritis, left hip (01/06/19) Surgery Performed Operation Date: 01/06/19 07:45 Actual Procedures p Total Hip Arthroplasty(Left) - Yarelis Bess MD Physical Therapy Treatment Note M2 PT-IP Current Condition Start: 01/06/19 14:28 Freq: NEEDED Status: Active Protocol: Document 01/06/19 16:00 DLM (Rec: 01/06/19 16:28 DLM [email or web address]) Physical Therapy Current Condition Current Condition Evaluation Date 01/06/19 Treatment Diagnosis left BEATRIZ, posterior approach, impaired gait Onset Date 12/27/18 Precautions Posterior Hip Precautions No Hip Flexion > 90 degrees No Hip Internal Rotation No Hip Adduction Weight Bearing Status Weight Bearing Status Weight Bear as Tolerated M3 PT-IP Subjective Start: 01/06/19 14:28 Freq: NEEDED Status: Active Protocol: Document 01/08/19 10:55 GGD (Rec: 01/08/19 12:15 GGD [email or web address]) Subjective Physical Therapy Visit Type Type Treatment Note Visit Start Time 10:30 Visit Stop Time 10:55 Total Visit Minutes 25 Number of MEDICAL CHARGE ENTRY SPECIALIST Visits 3 Physical Therapy Visit Comments Patient Comments Pt states she hope to go home. Therapy Pain Assessment Pain When Pain Assessed At Rest Pain Present Pain Present Pain Reported Location rt hip Intensity 4 Scale Used Numeric (1 - 10) M4 PT-IP Mobility and Gait Start: 01/06/19 14:28 Freq: NEEDED Status: Active Protocol: Document 01/08/19 10:55 GGD (Rec: 01/08/19 12:15 GGD [email or web address]) PT-Bed Mobility Assessment Supine to Sit Supine to Sit Contact Guard Assistance Scooting Scooting to Edge of Bed Standby Assistance Scooting Up and Down in Bed Standby Assistance PT-Transfer Assessment Sit to and From Stand Sit to and from Stand Contact Guard Assistance Equipment Transfer Assistive Device Gait Belt Front Wheeled Walker Transfers Transfer Destination Chair Transfer Ability Level of Assist Contact Guard Assistance Use of Upper Extremities Gait Assessment Gait Gait Assistance Required: Contact Guard Assist Distance (Feet) 220 Able to Maintain Weight Bearing Status Yes During Gait Assistive Devices Assistive Device Gait Belt Front Wheeled Walker Gait Deviations General Gait Pattern Antalgic Factors Limiting Gait Function Factors Limiting Gait Function Decreased Activity Tolerance Decreased Strength Pain Stair Climbing Assessment Evaluation Level of Assist On Stairs Minimal Assistance Devices Stair Climbing Assistive Devices Straight Cane Technique/Endurance Stair Climbing Direction Ascend and Descend Stair Climbing Technique Step to Step Number of Steps Climbed 3 Query Text: Stair Climbing Set # Repetitions (reps) 1 Comments Stair Climbing Comments family assist with hand hold with Min A and SPC M5 PT-IP Objective Assessments Start: 01/06/19 14:28 Freq: NEEDED Status: Active Protocol: Document 01/06/19 16:00 DLM (Rec: 01/06/19 16:28 DLM [email or web address]) Orientation Orientation/Cognition Level of Alertness Alert Orientation Name Age Birthday Month Date Year Day of Week Place Situation Language Function Ability No Deficits Noted Safety Awareness Understands Safety Issues Memory Description No Deficits Noted Comments face is swollen Gross Range of Motion Upper Extremity ROM Assessment Within Functional Limits Lower Extremity ROM Assessment Left Impaired Impairments post-op precautions Strength Upper Extremity Strength Assessment Within Functional Limits Lower Extremity Strength Assessment Left Impaired Hip hip flexion 2+/5 Knee 2+/5 Ankle DF 4/5 Comments Strength Comments post-op pain affecting left LE strength Coordination Assessment Gross Coordination Gross Coordination WNL Sensation Assessment Sensation Gross Sensation WNL Muscle Tone Muscle Tone WNL Yes M6 PT-IP Treatment Start: 01/06/19 14:28 Freq: NEEDED Status: Active Protocol: Document 01/08/19 10:55 GGD (Rec: 01/08/19 12:15 GGD [email or web address]) Physical Therapy Treatment Exercises Exercises Ankle Pumps Gluteal Sets Quad Sets Education Education Provided Precautions Other Treatments Other Treatment Performed Pt able to recall 3/3 hip precautions. M7 PT-IP Assessment and Plan Start: 01/06/19 14:28 Freq: NEEDED Status: Active Protocol: Document 01/08/19 10:55 GGD (Rec: 01/08/19 12:15 GGD [email or web address]) PT Summary Assessment and Plan Summary Assessment Summary Pt improving with mobility. She need min cues for hip precautions with mobility. She safe for home D/C when medically stable. Frequency of Treatment Frequency Of Treatment Twice a Day Treatment Plan Physical Therapy Treatment Plan Bed Mobility Training Transfer Training Gait Training Therapeutic Exercise Post Op Education Discharge Planning Hot or Cold Pack Recommendations To Nursing Amount of Assist Needed 1 Person Assist Discharge Recommendations PT Discharge Recommendations Home with Assistance Outpatient PT
[2019-01-08] MEDS: MULTIVITAMIN 1 TABLET 1 TAB PO (10:56)
[2019-01-08] MEDS: LOSARTAN 50 MG TABLET PO (10:56)
[2019-01-08] MEDS: ASPIRIN EC 81 MG TABLET PO (10:56)
--- NOTE | 2019-01-08 12:18 | PC.NURSE ---
Agree with SN Morales charting, precepting student this shift.
--- NOTE | 2019-01-08 12:47 | CM.DPNOTE ---
DCP: continued. Case received and discussed in Team Rounds. PT has cleared pt for home and ortho BABLIR Pizarro has completed d/c orders. Pt to home today with OUTPT PT set up as per her stated d/c plan.
--- NOTE | 2019-01-08 12:55 | PC.NURSE ---
Pt. up to shower with assist. Dressed and ready to go home. Discharge papers reviewed. To vehicle without incident.
== END 2019-01-08 13:04 | disposition home or self-care (01) | DRG 470 ==
PROVIDERS: Admitting Provider Orthopaedic Surgery; Visit Provider Orthopaedic Surgery
PROC: 0SRB0JZ Replacement of Left Hip Joint with Synthetic Substitute, Open Approach (ICD-10-PCS; CPT 27130; principal; 2019-01-06 07:45)
DX: M16.12 Unilateral primary osteoarthritis, left hip (principal); Z96.641 Presence of right artificial hip joint; E03.9 Hypothyroidism, unspecified; I10 Essential (primary) hypertension; L29.9 Pruritus, unspecified; T88.59XA Other complications of anesthesia, initial encounter
CPT/HCPCS: 36415; 72170; 73502; 85014; 85018; 94760; 94762; 97116; 97162; 97530; C1776; C9290; J0171; J0690; J1100; J1200; J2250; J2274; J2405; J2704; J3010; J3370